=== PATIENT | female | born 1990 | race Hispanic/Latino ===

== ENCOUNTER 2020-07-27 18:54 | Emergency (ER) | payer OTHER ==
[~2020-07-27] VITALS: Ht 149.9 cm; Wt 54.4 kg
[2020-07-27] MEDS ORDERED: ONDANSETRON HCL 4 MG ORAL DISINTEGRATING TAB PO ONE (19:30)
[2020-07-27 19:37] LABS: CLARITY,URINE TURBID (CLEAR); COLOR,URINE YELLOW (YELLOW)
[2020-07-27 19:38] LABS: BILIRUBIN,URINE NEGATIVE (NEGATIVE); KETONES,URINE NEGATIVE (NEGATIVE); LEUKOCYTE ESTERASE ,URINE MODERATE (NEGATIVE); NITRITE,URINE NEGATIVE (NEGATIVE); PROTEIN,URINE DIPSTICK >=300 (NEGATIVE); URINE UROBILINOGEN 0.2 mg/dL (0.2 - 1)
[2020-07-27 19:39] LABS: PREGNANCY TEST, URINE NEGATIVE (NEGATIVE)
[2020-07-27 19:55] LABS: BACTERIA,URINE FEW /HPF; EPITHELIAL CELLS,URINE FEW /LPF; WBC,URINE (MAN) >50 /HPF (0-5)
--- NOTE | 2020-07-27 19:56 | Emergency Department Note ---
History of Present Illnes History of Present Illness Chief Complaint: Genitourinary History of Present Illness This is a 30 year old female N FROM HOME WITH COMPLAINTS OF SUPRAPUBIC AND LOWER BACK PAIN STARTING TODAY, PAIN WITH URINATION AND URINARY FREQUENCY. PATIENT LMP 07/15/2020; . Historian: Patient Arrival Mode: Car Director Of Cloud Services Required: No Onset (how long ago): hour(s) (12) Location: LOWER ABD, LOW BACK Quality: PAIN, DYSURIA Radiation: Reports non-radiation Severity: mild Onset quality: sudden Duration (how long): hour(s) (12) Timing of current episode: constant Progression: unchanged Chronicity: new Context: Denies recent illness, Denies recent surgery, Denies recent travel, Denies trauma/injury Relieving factors: none Exacerbating factors: other (URNIATION) Past Medical/Family History Physician Review I have reviewed the patient's past medical and family history. Any updates have been documented here. Past Medical History Recent Fever: No Clinical Suspicion of Infectio: Yes New/Unexplained Change in Ment: No Past Medical History: None Past Surgical History: None Social History Smoking Cessation: Never Smoker Alcohol Use: None Any Illegal Drug Use: No Family History Family history of heart diseas: No Review of Systems Review of Systems Constitutional: Reports no symptoms EENTM: Reports no symptoms Cardiovascular: Reports no symptoms Respiratory: Reports no symptoms Gastrointestinal: Reports no symptoms Genitourinary: Reports as per HPI Musculoskeletal: Reports no symptoms Integumentary: Reports no symptoms Neurological: Reports no symptoms Psychological: Reports no symptoms Endocrine: Reports no symptoms Hematological/Lymphatic: Reports no symptoms Physical Exam Related Data Allergies: Coded Allergies: No Known Allergies (Unverified , 07/27/20) Triage Vital Signs Vital Signs Date Time Temp Pulse Resp B/P (MAP) Pulse Ox O2 Delivery O2 Flow Rate FiO2 07/27/20 18:59 98.6 102 16 114/76 100 Room Air Vital signs reviewed: Yes Physical Exam CONSTITUTIONAL Constitutional: Present well-developed, Present well-nourished; Absent distressed HENT HENT: Present normocephalic, Present atraumatic, Present oropharynx clear/moist, Present nose normal HENT L/R: Present left ext ear normal, Present right ext ear normal EYES Eyes: Reports PERRL, Reports conjunctivae normal NECK Neck: Present ROM normal PULMONARY Pulmonary: Present effort normal, Present breath sounds normal CARDIOVASCULAR Cardiovascular: Present regular rhythm, Present heart sounds normal, Present capillary refill normal, Present normal rate GASTROINTESTINAL Abdominal: Present soft, Present bowel sounds normal, Present tender (MILD SUPRAPUBIC TENDERNESS) GENITOURINARY Genitourinary: Present exam deferred SKIN Skin: Present warm, Present dry MUSCULOSKELETAL Musculoskeletal: Present ROM normal NEUROLOGICAL Neurological: Present alert, Present oriented x 3, Present no gross motor or sensory deficits PSYCHOLOGICAL Psychological: Present mood/affect normal, Present judgement normal Results Laboratory Laboratory Laboratory Tests Test 07/27/20 19:02 Urine Color Yellow (YELLOW) Urine Clarity Turbid (CLEAR) Urine pH 5.5 (5 - 7) Urine Specific [place] 1.030 (1.010-1.025) Urine Protein >=300 (NEGATIVE) Urine Glucose (UA) Negative (NEGATIVE) Urine Ketones Negative (NEGATIVE) Urine Blood Moderate (NEGATIVE) Urine Nitrite Negative (NEGATIVE) Urine Bilirubin Negative (NEGATIVE) Urine Urobilinogen 0.2 mg/dL (0.2 - 1) Urine Leukocyte Esterase Moderate (NEGATIVE) Urine RBC 11-20 /HPF (0-5) Urine WBC >50 /HPF (0-5) Urine Epithelial Cells Few /LPF (NONE) Urine Bacteria Few /HPF (NONE) Urine Test Negative (NEGATIVE) Laboratory Tests Test 07/27/20 19:02 Urine Color Yellow (YELLOW) Urine Clarity Turbid (CLEAR) Urine pH 5.5 (5 - 7) Urine Specific [place] 1.030 (1.010-1.025) Urine Protein >=300 (NEGATIVE) Urine Glucose (UA) Negative (NEGATIVE) Urine Ketones Negative (NEGATIVE) Urine Blood Moderate (NEGATIVE) Urine Nitrite Negative (NEGATIVE) Urine Bilirubin Negative (NEGATIVE) Urine Urobilinogen 0.2 mg/dL (0.2 - 1) Urine Leukocyte Esterase Moderate (NEGATIVE) Urine Test Negative (NEGATIVE) Lab results reviewed: Yes Assessment & Plan Medical Decision Making MDM PT WITH SUPRAPUBIC PAIN AND DYSURIA UA ORDERED TO EVAL FOR UTI Reassessment Reassessment time: 20:09 Reassessment PT STILL IN NAD, NAUSEA RESOLVED WITH ZOFRAN ROCEPHIN 1 GRAM IM ORDERED PT DISCHARGED WITH OMNICEF, PYRIDIUM AND ZOFRAN ODT Assessment & Plan Final Impression: (1) UTI (urinary tract infection) Depart Disposition: HOME, SELF-CARE Last Vital Signs Date Time Temp Pulse Resp B/P (MAP) Pulse Ox O2 Delivery O2 Flow Rate FiO2 07/27/20 18:59 98.6 102 16 114/76 100 Room Air Medications in the ED Ondansetron HCl 4 mg ONCE ONCE PO ; Start 07/27/20 at 19:30; Stop 07/27/20 at 19:31; Status DC SHIRIN DUNCAN MD Jul 27, 2020 19:56
[2020-07-27] MEDS ORDERED: CEFTRIAXONE SOD 1 GM VIAL IM ONE (20:15)
== END 2020-07-27 20:40 | disposition home or self-care (01) ==
LOC: ER 20:16
DX: R30.0 Dysuria (principal); N39.0 Urinary tract infection, site not specified; M54.5 Low back pain; R10.30 Lower abdominal pain, unspecified
CPT/HCPCS: 81001; 81025; 99284; J0696; Q0162